=== PATIENT | male | born 1980 | race Caucasian/White ===

== ENCOUNTER 2018-07-30 10:42 | Emergency (ER) | payer MEDICAID, SELFPAY ==
[2018-07-30 10:57] VITALS: BP 142/77; PULSE 91; RESP 16; TEMP 37; O2SAT 98
--- NOTE | 2018-07-30 11:56 | DI.RAD_ITS ---
SYMPTOMS/DIAGNOSIS: ANTERIOR PAIN S/P FALL, PRIOR KNEE SX LEFT KNEE: Four views. No bone or joint abnormality is identified. IMPRESSION: No acute abnormality.
[2018-07-30] MEDS: Acetaminophen 325 MG TAB 650 MG PO (12:04)
--- NOTE | 2018-07-30 13:11 | ED.GENADUL_ITS ---
Discharge Plan Disposition Patient Disposition: HOME Discharge Details Chief Complaint: Orthopedic Clinical Impression: Injury of knee, left Primary Care Provider: Julián Lord ED Provider: Moe Pantoja Home Meds and New Rx's Prescriptions: Continued citalopram 20 MG tablet 1 tab PO DAILY RF: 0 gabapentin 300 MG capsule 300 mg PO BID RF: 0 Discharge Instructions Instructions: Hinged Knee Brace (ED) Additional Instructions: Please take ibuprofen over the counter - dose according to label. Please use hinged knee brace and crutches. Follow-up with orthopedics. Return to the ER for any worsening or new concerning symptoms. Referrals: Lon Miles MD [ [facility] STAFF PHYSICIAN] - Medical Decision Making 38-year-old male with prior meniscal injury and surgery on left knee, here 2 weeks after hyperextension injury left knee with continued pain. Patellar tendon, ACL and PCL intact. No significant effusion on exam. Pain with flexion. Neurovascular intact distally. X-ray of the left knee reviewed and interpreted by radiology: Negative Plan to continue hinged knee brace, crutches, follow-up with orthopedics given prior meniscal injury and surgery. Concern for potential recurrent meniscal tear. HPI General Mode of arrival: ambulatory . Date/Time Provider Initiated Documentation: 07/30/18 10:58 . Limitations to Documentation: no limitations . Information obtained by: patient . HPI Narrative: 38-year-old male with prior meniscal injury and surgery on left knee, here 2 weeks after hyperextension injury left knee with continued pain. Patient slipped and fell on ice. Pain is moderate. Worse with movement. Has been wearing in his knee brace and using Related Data Home Medications Medication Instructions Recorded Confirmed citalopram 1 tab PO DAILY 12/19/14 07/30/18 gabapentin 300 mg PO BID 12/28/15 07/30/18 Allergies Allergy/AdvReac Type Severity Reaction Status Date / Time ibuprofen AdvReac Intermediate STOMACH Unverified 07/30/18 10:59 UPSET naproxen sodium [From Aleve] AdvReac Intermediate VOMITTING, Unverified 07/30/18 10:59 STOMACH BURN, NASEAU General Stated Complaint: Orthopedic MENDEL: 4 Review of Systems Constitutional Denies fever(s) Musculoskeletal Reports as per HPI PFSH Medical History Depression Hypospadias Migraine Surgical History Arthroplasty of knee (06/17/13) hypospadias repair Social History Smoking/Tobacco Use Status: Current every day Exam Const General: cooperative and no acute distress Cardio Rate: regular rate Rhythm: regular rhythm Skin General skin exam: no rashes or lesions noted Neuro General: alert, awake, oriented x3 and tone normal Extrem General: no edema Left lower extremity: hip/thigh Details: no tenderness and no swelling, knee (pain with flexion of knee, patellar tendon intact, acl and pcl intact) Details: tenderness (anterior knee) and knee ligament exam normal; no swelling and lower leg Details: no tenderness and no unusual warmth Course Vital Signs Temperature 37 C 07/30/18 10:57 Pulse 91 H 07/30/18 10:57 Respiratory Rate 16 07/30/18 10:57 Blood Pressure 142/77 H 07/30/18 10:57 Pulse Oximetry 98 07/30/18 10:57 Temperature 37 C 07/30/18 10:57 Temperature Source Skin 07/30/18 10:57 Pulse 91 H 07/30/18 10:57 Respiratory Rate 16 07/30/18 10:57 Respiratory Effort Non-Labored 07/30/18 10:57 Blood Pressure 142/77 H 07/30/18 10:57 Blood Pressure Position Sitting 07/30/18 10:57 Pulse Oximetry 98 07/30/18 10:57 Oxygen Delivery Method Room Air 07/30/18 10:57 Oxygen Flow Rate 0 07/30/18 10:57 Pain Level 6 07/30/18 12:25
== END 2018-07-30 13:23 | disposition home or self-care (01) ==
PROVIDERS: Emergency Provider Student in an Organized Health Care Education/Training Program; PCP Family Medicine
DX: M25.562 Pain in left knee (principal)
CPT/HCPCS: 29505; 99283; 73564; 99282; L1820

== ENCOUNTER 2018-10-05 08:30 | Outpatient (CLI) | payer MEDICAID, SELFPAY ==
--- NOTE | 2018-10-05 08:33 | W.PREOPHP ---
Date of service: 10/05/18 Time of Service: 08:33 Assessment and Plan (1) Internal derangement of left knee: Current visit: Yes Status: Acute A model was used to explain to the patient the anatomy of his knee to point possible pain generators and briefly review the arthroscopic procedure. All questions are answered. He is hoping to find some pathology in his knee to explain his continued symptoms since [place] time History of Present Illness Chief Complaint: left knee pain Narrative: heron is a 38-year-old male who reports 1226 hyperextension injury to his left knee following a slip and fall on ice. He complains of medial and infrapatellar pain and swelling about his knee with constant locking and giving way resulting in a fall and exacerbation of knee pain when he turns on a planted foot. He has been treated with ibuprofen and gone to [facility] and he is noted no change in his symptoms. He has no interest in injective therapy. X-rays done to workup his knee pain have been benign. His history and exam are most suggestive of a internal derangement likely a medial meniscal tear that is not resolving with conservative measures so arthroscopic evaluation of his knee and treatment of any internal derangement found was advised. He has no occupational exposure/this is not a workers comp injury. He previously worked on a horse farm. Pertinent Surgical Information Denies previous medical history of: stroke, TIA, [place], use of sublingual nitroglycerin, GERD, seizures, diabetes, thyroid disease, sleep apnea, liver disease, hepatitis, hematologic disorders Denies previous complications from surgery or anesthesic agents with respect to high fever, prolonged vomiting and difficulty waking up Review of Systems Constitutional Denies fever(s) and Denies headache(s) ENT Denies headache(s), Denies nasal congestion, Denies nasal discharge and Denies sore throat Cardiovascular Denies chest pain, Denies chest pain with activity, Denies palpitations, Denies dyspnea on exertion, Denies orthopnea and Denies paroxysmal nocturnal dyspnea Respiratory Denies cough, Denies excessive phlegm production, Denies pain on inspiration, Denies dyspnea on exertion and Denies wheezing Gastrointestinal Denies abdominal pain, Denies melena, Denies hematochezia, Denies nausea and Denies vomiting Genitourinary Denies hematuria, Denies dysuria and Denies urinary frequency Comments: Denies burning sensation with urination Musculoskeletal Reports as per HPI Neurologic Denies headache(s) Psychiatric Reports anxiety and Reports depression Comments: previously on citalopram and gabapentin for anxiety now takes no rx meds- seeking out a counselor to deal with issues instead of rxs Endocrine Denies palpitations Comments: Denies any unplanned weight changes Allergic/Immunologic Denies wheezing PFSH Social History Smoking/Tobacco Use Status: Current every day Second Hand Exposure: Yes Details: infrequent 1/month Drug use: Occasionally Substance use type: marijuana Counseling given: No Details: [id number] Household members: significant other Meds Allergies Allergy/AdvReac Type Severity Reaction Status Date / Time ibuprofen AdvReac Intermediate STOMACH Unverified 10/05/18 08:44 UPSET naproxen sodium [From Aleve] AdvReac Intermediate VOMITTING, Unverified 10/05/18 08:44 STOMACH BURN, NASEAU Exam Const General: cooperative HENMT Throat: posterior oropharynx normal Eyes General: appearance normal, both eyes and all related structures Conjunctivae: conjunctivae normal Sclera: sclerae normal Neck Neck: no JVD Carotids: normal carotid upstroke and no bruits Resp Effort & Inspection: normal respiratory effort and able to speak in complete sentences Auscultation: clear to auscultation bilaterally, no rales, no rhonchi and no wheezes Cardio Rate: regular rate Heart Sounds: S1 normal, S2 normal and no murmurs Bruits: no abdominal aortic bruits Pulses: normal peripheral pulses Other: No pulsatile mass noted with palpation over the abdominal aorta GI Palpation: soft and no hepatosplenomegaly Auscultation: normal bowel sounds General: No CVA tenderness Extrem General: no pedal edema Other: Normal sensation to light touch No web space cracks or splits noted knee has scant effusion. full extension with flexion intact to 125 degrees.no ligamentous laxity . winces and guards to medial retinacular palpation. single po with jania test.spring test benign.has an exaggerated pain responseto spring and infrapatellar palpation.notes increased pain with patellar compression and quad contraction
--- NOTE | 2018-10-05 08:38 | HPE_ITS ---
Date of service: 10/05/18 Time of Service: 08:33 Assessment and Plan (1) Internal derangement of left knee: Current visit: Yes Status: Acute A model was used to explain to the patient the anatomy of his knee to point possible pain generators and briefly review the arthroscopic procedure. All questions are answered. He is hoping to find some pathology in his knee to explain his continued symptoms since [place] time History of Present Illness Chief Complaint: left knee pain Narrative: heron is a 38-year-old male who reports 1226 hyperextension injury to his left knee following a slip and fall on ice. He complains of medial and infrapatellar pain and swelling about his knee with constant locking and giving way resulting in a fall and exacerbation of knee pain when he turns on a planted foot. He has been treated with ibuprofen and gone to [facility] and he is noted no change in his sym ptoms. He has no interest in injective therapy. X-rays done to workup his knee pain have been benign. His history and exam are most suggestive of a internal derangement likely a medial meniscal tear that is not resolving with conservative measures so arthroscopic evaluation of his knee and treatment of any internal derangement found was advised. He has no occupational exposure/this is not a workers comp injury. He previously worked on a horse farm. Pertinent Surgical Information Denies previous medical history of: stroke, TIA, [place], use of sublingual nitroglycerin, GERD, seizures, diabetes, thyroid disease, sleep apnea, liver disease, hepatitis, hematologic disorders Denies previous complications from surgery or anesthesic agents with respect to high fever, prolonged vomiting and difficulty waking up Review of Systems Constitutional Denies fever(s) and Denies headache(s) ENT Denies headache(s), Denies nasal congestion, Denies nasal discharge and Denies sore throat Cardiovascular Denies chest pain, Denies chest pain with activity, Denies palpitations, Denies dyspnea on exertion, Denies orthopnea and Denies paroxysmal nocturnal dyspnea Respiratory Denies cough, Denies excessive phlegm production, Denies pain on inspiration, Denies dyspnea on exertion and Denies wheezing Gastrointestinal Denies abdominal pain, Denies melena, Denies hematochezia, Denies nausea and Denies vomiting Genitourinary Denies hematuria, Denies dysuria and Denies urinary frequency Comments: Denies burning sensation with urination Musculoskeletal Reports as per HPI Neurologic Denies headache(s) Psychiatric Reports anxiety and Reports depression Comments: previously on citalopram and gabapentin for anxiety now takes no rx meds- seeking out a counselor to deal with issues instead of rxs Endocrine Denies palpitations Comments: Denies any unplanned weight changes Allergic/Immunologic Denies wheezing PFSH Social History Smoking/Tobacco Use Status: Current every day Second Hand Exposure: Yes Details: infrequent 1/month Drug use: Occasionally Substance use type: marijuana Counseling given: No Details: [id number]/day Household members: significant other Meds Allergies Allergy/AdvReac Type Severity Reaction Status Date / Time ibuprofen AdvReac Intermediate STOMACH Unverified 10/05/18 08:44 UPSET naproxen sodium [From Aleve] AdvReac Intermediate VOMITTING, Unverified 10/05/18 08:44 STOMACH BURN, NASEAU Exam Const General: cooperative HENMT Throat: posterior oropharynx normal Eyes General: appearance normal, both eyes and all related structures Conjunctivae: conjunctivae normal Sclera: sclerae normal Neck Neck: no JVD Carotids: normal carotid upstroke and no bruits Resp Effort & Inspection: normal respiratory effort and able to speak in complete sentences Auscultation: clear to auscultation bilaterally, no rales, no rhonchi and no wheezes Cardio Rate: regular rate Heart Sounds: S1 normal, S2 normal and no murmurs Bruits: no abdominal aortic bruits Pulses: normal peripheral pulses Other: No pulsatile mass noted with palpation over the abdominal aorta GI Palpation: soft and no hepatosplenomegaly Auscultation: normal bowel sounds General: No CVA tenderness Extrem General: no pedal edema Other: Normal sensation to light touch No web space cracks or splits noted knee has scant effusion. full extension with flexion intact to 125 degrees.no ligamentous laxity . winces and guards to medial retinacular palpation. single po with jania test.spring test benign.has an exaggerated pain responseto spring and infrapatellar palpation.notes increased pain with patellar compression and quad contraction
== END 2018-10-05 08:50 ==
PROVIDERS: Visit Provider Orthopaedic Surgery
DX: Z01.818 Encounter for other preprocedural examination (principal)

== ENCOUNTER 2018-10-10 12:01 | Day surgery (SDC) | payer MEDICAID, SELFPAY ==
[2018-10-10] VITALS (8 sets, daily range): BP systolic 88–134; BP diastolic 45–84; PULSE 74–93; RESP 12–18; TEMP 36.2–36.8; O2SAT 98–100
[2018-10-10] MEDS: Lactated Ringers 1,000 ML 80 ML IV (12:50)
--- NOTE | 2018-10-10 14:40 | PDOC.DSDIS_ITS ---
Discharge Plan Disposition Patient Disposition: HOME Condition: Good Discharge Details Reason For Visit: INTERNAL DERANGEMENT (L) KNEE Attending Provider: Lon Miles Primary Care Provider: None,None Home Meds and New Rx's Prescriptions: New celecoxib [Celebrex] 50 mg capsule 200 mg PO BID Qty: 60 RF: 0 oxycodone-acetaminophen 5-325 mg tablet 1 tab PO Q4H PRN (Reason: pain ) Qty: 14 RF: 0 Discharge Instructions Additional Instructions: Elevate L leg on 1-2 pillows as much as possible for next 48 hours. Crutches to walk. Put as much weight on L leg as your discomfort allows. Discontinue crutches when you can step on L leg with minimal pain. Apply cryocuff to L knee 4 times/day for 1 hour each time. Remove dressings, shower, and get incisions wet after 48 hours. Leave incisions uncovered when they are dry and sealed. Outpatient physical therapy to rehab L knee post-arthroscopic plica excision onFriday. Follow up with in 2 weeks. Take celebrex as prescribed for inflammation and swelling. Take oxycodone, if needed, for breakthru pain. Referrals: Lon Miles MD [ [facility] STAFF PHYSICIAN] - (f/u in 2 weeks.) Equipment/Supplies: Partial Weight Bearing Crutches Activity:: Activity as Tolerated Remove Dressings/Wound Care:: 48 hours Shower/Bathe:: 48 hours Diet:: As Tolerated Discharge Orders Discharge Orders: Discharge Order (Routine); Ordered 10/10/18 Ordered By: Lon Miles DS: Diagnosis Discharge Diagnosis (1) Internal derangement of left knee: Status: Acute
[2018-10-10] MEDS: fentaNYL 100 MCG/2 ML VIAL IVP ×2 (15:00→15:30)
[2018-10-10] MEDS: Ketorolac 30 MG/ML VIAL (15:08)
[2018-10-10] MEDS: oxyCODONE-CR 10 MG TABCR PO (16:03)
--- NOTE | 2018-10-10 21:18 | ROE_ITS ---
DATE OF PROCEDURE: October 10, 2018 PREOPERATIVE DIAGNOSIS: Internal derangement, left knee. POSTOPERATIVE DIAGNOSIS: Internal derangement, left knee, due to medial patella plica, torn medial m eniscus, and an articular cartilage lesion in the trochlea of the femur. PROCEDURE: #1. Arthroscopic left knee with partial medial meniscectomy. #2. Resection of plica (limited synovectomy). #3. Chondroplasty trochlea of the distal femur. SURGEON: Lon Miles M.D. ANESTHESIA: General. INDICATIONS: This is a 38-year-old white male with an almost one-year history of left knee pain. Th is pain has progressed to the point where he is on crutches all the time. He has recurrent giving wa y as well. Because of failure to improve with conservative treatment, arthroscopy was recommended to obtain an accurate diagnosis that would provide a basis for treatment. He has not responded to cons ervative treatment so far. PROCEDURE: The patient was taken to the Operating Room on 10/10/18. He was placed supine on the oper ating table and a general anesthetic was administered. The left thigh was placed in the arthroscopic leg zuleta and the left knee was prepped and draped free in the usual sterile fashion. Arthroscopic portals were established and the left knee was inflated with normal saline solution using the arthro scopy pump. Routine arthroscopic examination then proceeded. Intraoperative photographs were obtain ed to document findings. Upon entering the medial compartment, he looked to have a normal meniscus. The articular cartilage i n the medial compartment was intact and undamaged. The medial meniscus was probed under direct visio n, and while probing there was noted to be a horizontal cleavage tear of the anterior horn of the med ial meniscus. This tear was easily treated with the high-radiofrequency electrocautery wand to resec t the torn portion of the meniscus. The intercondylar notch showed intact anterior and posterior cruciate ligaments. The lateral compart ment showed a normal lateral meniscus that was stable to probing under direct vision. 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 The medial gutter demonstrated a very thickened plica. I could snap the end of the arthroscope over this plica. I resected the plica using the high-radiofrequency electrocautery wand, correcting any i mpingement on the medial femoral condyle. The suprapatellar pouch was clear. The patellofemoral lani nt showed normal patellar tracking. However, in the middle of the trochlea that is very apex, there was a partial-thickness defect in the articular cartilage. It was probably 75% of the thickness of gabriela moran articular cartilage and the diameter of the lesion was about 6 mm. The roman of the lesion were t hen smoothed and contoured using the high-radiofrequency electrocautery wand so there would not be a fixed stepoff. At this point, the knee was copiously irrigated with saline solution using the arthroscopy pump until the outflow was clear. Twenty cc's of 0.5% Marcaine with epinephrine solution along with 4 mg of mo rphine were instilled into the left knee and all instruments were removed from the knee. The arthros copy portals were infiltrated with 0.5% Marcaine with epinephrine solution and approximated with inte rrupted #4-0 nylon sutures. Sterile dressings were applied, followed by a light compressive dressing to the left knee. The patient tolerated the procedure well. Blood loss was minimal. His anesthesi a was reversed without complications. He was discharged to the Recovery Room in good condition. The patient was later discharged home from the Day Surgery Unit when fully recovered from his general anesthesia. He was given instructions to elevate his left leg on one to two pillows as much as poss ible for the next 48 hours. He is to use crutches to walk, weightbearing as tolerated to the left le g. He may discontinue the crutches when he can step on his left leg without pain. He may remove his dressings, shower and get his incisions wet after 48 hours. He can leave the incisions uncovered wh en they are dry and sealed. He is to begin outpatient Physical Therapy in 48 to 72 hours for range o f motion and strengthening of his left knee. He is given a prescription for inflammation of Celebrex 200 mg p.o. b.i.d. for a week and a prescription for pain of oxycodone with APAP 5 mg/325 mg, 1 tabl et every 4 hours as needed. He is to apply a Cryo/Cuff to the left knee four times a day for an hour each time. He will follow up with Dr. Miles in two weeks.
== END 2018-10-10 16:38 | disposition home or self-care (01) ==
PROVIDERS: Visit Provider Orthopaedic Surgery
PROC: (CPT 29870; principal; 2018-10-10 14:00)
DX: M23.204 Derangement of unspecified medial meniscus due to old tear or injury, left knee (principal); M67.52 Plica syndrome, left knee; M23.92 Unspecified internal derangement of left knee; M17.12 Unilateral primary osteoarthritis, left knee
CPT/HCPCS: 29881; E0114; J0690; J1100; J1885; J2405; J3010

== ENCOUNTER 2019-03-19 07:51 | Emergency (ER) | payer MEDICAID, SELFPAY ==
--- NOTE | 2019-03-19 07:54 | ED.GENADUL_ITS ---
Discharge Plan Disposition Patient Disposition: HOME Condition: Fair Discharge Details Chief Complaint: Nk/Back Pain Clinical Impression: Muscle strain of upper back, Paraspinal muscle spasm Primary Care Provider: None,None ED Provider: Rylee Reese Home Meds and New Rx's Prescriptions: New diazepam [Valium] 5 mg tablet 5 mg PO TID PRN (Reason: muscle spasm) Qty: 10 RF: 0 lidocaine [Lidoderm] 5 % adhesive patch,medicated 1 patch TP DAILY PRN (Reason: pain) Qty: 15 RF: 0 Discharge Instructions Instructions: Muscle Spasm (ED), Lower Back Exercises (ED) Additional Instructions: Encourage hydration. With gentle stretching and frequent ambulation. No heavy lifting. May continue with Tylenol as needed for discomfort. You may continue to apply the patches as prescribed. You may augment the Tylenol with Valium as prescribed to help with muscle spasm. Attached to the referral to physical therapy. Please call and schedule follow-up appointment. If you develop fever/chills, increased pain, radiating pain, weakness, sensation changes or other new/worsening symptoms please seek care urgently once again. Otherwise, please follow-up with primary care in 1 week if not improved. Stand Alone Forms: Physical Therapy Referral Medical Decision Making Patient is a 38-year-old male, accompanied by significant other, with chief complaint of back pain. He reports that 3 days ago he was lifting a 50 pound long tote from a above height shelf when he felt a mild onset of pain. Reports that this later was exacerbated when lifting a large piece of wood was splitting wood. States this further exacerbated following day when lifting plywood. He reports that after each subsequent incident, the pain progressively got worse. Found the pain much worse in the morning. States that he awoke this morning and was having difficulty getting out of bed. States that minimal movements cause severe pain. Does not radiate into the legs. Denies any fevers chills. Denies any fall or trauma. On exam, patient appears nontoxic. He is noted to be tachycardic with a heart rate of 100, this may be associated with his discomfort. He does appear uncomfortable. He has good rotational to the left, pain is exacerbated with rotation to the right. He has no midline tenderness but is severe discomfort with palpation along the paraspinal muscles of the thoracic spine. Neuro exam is intact, no saddle paresthesias. Does have a small abrasion on the left upper side of the fact that she is not sure when he got this. Patient is allergic to ibuprofen. Will give Valium, Tylenol and a Lidoderm patch. The patient's age, that he has not had any trauma, do not feel that he has bony abnormality, do not feel that imaging is appropriate at this time. No bony tenderness with palpation. Patient reports he has some improvement after the above intervention, reports the pain is 10.9 with 7. Is requesting further medication at this time. Augmented with tramadol. Patient reports the pain continues to improve but is still present. We discussed further options and at this time, he prefers discharge. Patient will be given referral to physical therapy. We will continue him on Valium as needed for muscle spasm. He was instructed to not drive while taking this medication. Encourage hydration. I encouraged gentle stretching and frequent ambulation. He was given strict return precautions, particularly with neurologic deficits. Advise follow-up with primary care in 1 week, as patient does not have any illicit, thus her care according to help facilitate prompt follow-up. All his questions and concerns were addressed and he is in agreement this plan. [facility] General Mode of arrival: ambulatory . Date/Time Provider Initiated Documentation: 03/19/19 07:54 . Limitations to Documentation: no limitations . Information obtained by: patient, family and RN notes reviewed . History of Present Illness 38 year old M presents to the emergency department with the chief complaint of thoracic back pain, described as severe, with intensity rated at 9. Quality is described as aching, and is localized to the back. Patient reports no radiation. Patient started experiencing this day(s) (3) and it has been constant. Immobilization improves symptom(s), Movement worsens symptoms . Patient notes no other symptoms.; denies chest pain, cough, diaphoresis, fever/chills, headaches, loss of appetite, nausea/vomiting, rash, shortness of breath and weakness. Patient did receive the following treatments prior to arrival, none Related Data Home Medications Medication Instructions Recorded Confirmed diazepam [Valium] 5 mg PO TID PRN #10 tab 03/19/19 lidocaine [Lidoderm] 1 patch TP DAILY PRN #15 each 03/19/19 Previous Rx's Medication Instructions Recorded diazepam [Valium] 5 mg PO TID PRN #10 tab 03/19/19 lidocaine [Lidoderm] 1 patch TP DAILY PRN #15 each 03/19/19 Allergies Allergy/AdvReac Type Severity Reaction Status Date / Time ibuprofen AdvReac Intermediate STOMACH Unverified 10/24/18 09:35 UPSET naproxen sodium [From Aleve] AdvReac Intermediate VOMITTING, Unverified 10/24/18 09:35 STOMACH BURN, NASEAU General MENDEL: 4 Review of Systems Constitutional Reports as per HPI, Denies chills, Denies fever(s), Denies headache(s) and Denies weakness ENT Denies headache(s) Cardiovascular Reports as per HPI Respiratory Reports as per HPI and Denies cough Musculoskeletal Reports as per HPI and Denies tingling Integumentary/Breasts Reports as per HPI, Denies rash and Denies wounds Neurologic Reports as per HPI, Denies headache(s), Denies tingling, Denies paresthesias and Denies weakness PFSH Medical History Depression (Chronic) Hypospadias (Inactive) Migraine (Chronic) Surgical History History of arthroscopic knee surgery (Inactive) History of extraction of renal calculus (Resolved) Hx of cystoscopy (Inactive) hypospadias repair (Inactive) Social History Smoking/Tobacco Use Status: Current every day Tobacco Type: cigarettes Second Hand Exposure: Yes Alcohol Intake: never Details: infrequent 1/month Drug use: Occasionally Substance use type: marijuana Counseling given: No Details: [id number]/day Household members: significant other Do you feel safe at home: Yes Do you feel safe in your relationship?: Yes Exam Const General: cooperative, healthy appearing, comfortable, no acute distress, well developed and well groomed Nutritional Appearance: average body habitus and well nourished Orientation: alert and awake Resp Effort & Inspection: normal respiratory effort, able to speak in complete sentences and no respiratory distress Cardio Rate: regular rate Rhythm: regular rhythm Back/Spine/Pelvis Back: no CVA tenderness Cervical Spine: normal cervical lordosis, cervical ROM normal, No cervical muscular tenderness, No pain with cervical ROM, No cervical spinal tenderness, No step off deformity and No cervical ROM abnormal Thoracic/Lumbar Spine: thoracic and lumbar spine normal to inspection, No thoraco-lumbar ROM normal (limited rotation to the right), No kyphosis, No mass, paraspinal tenderness (pain T4-T9 with palpation ), thoraco-lumbar ROM limited, thoraco-lumbar spasm (spasm along right side of thoracic spine), No thoracic spinal tenderness (no midline tenderness), No lumbar spinal tenderness and No straight leg raise positive Pelvis: no pain with anterior-posterior compression Skin Trauma: abrasion (1cm well healing abrasion to left side of upper back, no sxs of infection) Neuro General: alert and awake Cognition: normal cognition Speech: speech normal Gait: normal gait Motor: muscle tone normal throughout (no saddle paresthesias), strength 5/5 throughout, no movement abnormalities noted and no fasciculations Sensory Exam: no sensory deficits noted Extrem General: normal to inspection, normal capillary refill and no pedal edema Psych Appearance: grossly normal and well kempt Mental Status: mental status grossly normal Speech and Movement: speech and movement normal
[2019-03-19 07:58] VITALS: BP 134/78; PULSE 100; RESP 18; TEMP 36.5; O2SAT 98
[2019-03-19] MEDS: Acetaminophen 500 MG TAB 1000 MG PO (08:28)
[2019-03-19] MEDS: diazePAM 5 MG TAB PO (08:28)
[2019-03-19] MEDS: Lidocaine 5% Patch 1 PATCH TP (08:30)
[2019-03-19 09:29] VITALS: BP 117/66; PULSE 65; RESP 16; O2SAT 99
[2019-03-19] MEDS: traMADol 50 MG TAB PO (09:33)
== END 2019-03-19 10:20 | disposition home or self-care (01) ==
PROVIDERS: Emergency Provider Physician Assistant
DX: M62.830 Muscle spasm of back (principal); S29.012A Strain of muscle and tendon of back wall of thorax, initial encounter; X50.0XXA Overexertion from strenuous movement or load, initial encounter
CPT/HCPCS: 99283

== ENCOUNTER 2023-01-14 08:44 | Emergency (ER) | payer MEDICAID, SELFPAY ==
[2023-01-14 08:54] VITALS: BP 135/81; PULSE 85; RESP 15; TEMP 37; O2SAT 99
--- NOTE | 2023-01-14 09:00 | DI.RAD_ITS ---
Exam(s) XR HAND RT COMPLETE EXAM: XR HAND RT COMPLETE CLINICAL HISTORY: right hand pain 4th and 5th metacarpal pain. TECHNIQUE: 2D digital imaging was performed. Three views. COMPARISON: No exams were available for comparison FINDINGS: BONES: No acute fracture is present. No bony destructive lesion is seen. JOINTS: No dislocation present. SOFT TISSUE: Tiny bony fragment seen near the 3rd distal interphalangeal joint appears chronic. IMPRESSION: No acute abnormality. DATA REPOSITORY: RADIATION DOSE DELIVERED:
--- NOTE | 2023-01-14 09:32 | ED.GENADUL_ITS ---
Discharge Plan Disposition Patient Disposition: Home Discharge Details Clinical Impression: Hand strain Primary Care Provider: None,None ED Provider: Mary Anne Fields Home Meds and New Rx's Prescriptions: Continued diazepam [Valium] 5 mg tablet 5 mg PO TID PRN (Reason: muscle spasm) Qty: 10 0RF Patient Comments: no longer taking 01/14/23 CT lidocaine [Lidoderm] 5 % adhesive patch,medicated 1 patch TP DAILY PRN (Reason: pain) Qty: 15 0RF Patient Comments: no longer taking 01/14/23 CT Rx Instructions: leave on most painful area for 12 hrs Discharge Instructions Instructions: Muscle Strain (ED) Additional Instructions: Ibuprofen and Tylenol as needed for pain Return earlier should you have new or worsening complaints We will likely take some time for you to have symptomatic improvement Warm compresses and Voltaren gel may help with your pain, Voltaren gel is ove [id number] There is no evidence of fracture on your x-ray Medical Decision Making 42-year-old male with tenderness to right hand, dorsal aspect, after a lifting mechanism X-ray reviewed per radiology interpretation and my review Strength and sensation largely intact, slightly decreased hand grasp secondary to tenderness, neurovascularly intact Ibuprofen and Tylenol recommended Return precautions reviewed and patient expressed understanding HPI General Date/Time Provider Initiated Documentation: 01/14/23 08:58 . HPI Narrative: 42-year-old male presents with right hand injury. States the pain is exacerbated with movement. He states that he grabbed the rear door of this car and felt a popping sensation. This is a week ago. Denies any additional complaints at this time. Related Data Home Medications Medication Instructions Recorded Confirmed diazepam 5 mg tablet (Valium) 5 mg PO TID PRN muscle spasm #10 03/19/19 tabs lidocaine 5 % topical patch 1 patch topical DAILY PRN pain #15 03/19/19 (Lidoderm) ea Previous Rx's Medication Instructions Recorded diazepam 5 mg tablet (Valium) 5 mg PO TID PRN muscle spasm #10 03/19/19 tabs lidocaine 5 % topical patch 1 patch topical DAILY PRN pain #15 03/19/19 (Lidoderm) ea Allergies Allergy/AdvReac Type Severity Reaction Status Date / Time ibuprofen AdvReac Intermediate STOMACH Unverified 01/14/23 08:58 UPSET naproxen sodium [From Aleve] AdvReac Intermediate VOMITTING, Unverified 01/14/23 08:58 STOMACH BURN, NASEAU General Stated Complaint: Orthopedic MENDEL: 4 PFSH All Active Problems (Updated 01/14/23 @ 09:30 by TERESE Brower) Hand strain (Acute) Internal derangement of left knee (Acute) Left ureteral stone (Acute 01/08/16) Depression (Chronic) Migraine (Chronic) Medical History (Updated 01/14/23 @ 09:30 by TERESE Brower) Hypospadias Surgical History History of arthroscopic knee surgery Hx of cystoscopy hypospadias repair Social History Smoking/Tobacco Use Status: Current every day Tobacco Type: cigarettes Second Hand Exposure: Yes Smoking risk assessment performed?: Yes Alcohol Intake: never Details: infrequent 1/month Drug use: Occasionally Substance use type: marijuana Counseling given: No Details: [id number]/day Household members: significant other Do you feel safe at home: Yes Do you feel safe in your relationship?: Yes Exam Narrative Exam Narrative: Right hand with swelling and tenderness to the dorsal aspect, no erythema, slightly decreased hand grasp, no tenderness to right wrist, neurovascularly intact Course Vital Signs Vital signs: Vital Signs Temperature 37.0 C 01/14/23 08:54 Pulse 85 01/14/23 08:54 Respiratory Rate 15 01/14/23 08:54 Blood Pressure 135/81 01/14/23 08:54 Pulse Oximetry 99 01/14/23 08:54 Temperature 37.0 C 01/14/23 08:54 Temperature Source Temporal Artery Scan 01/14/23 08:54 Pulse 85 01/14/23 08:54 Respiratory Rate 15 01/14/23 08:54 Respiratory Effort Normal 01/14/23 08:57 Blood Pressure 135/81 01/14/23 08:54 Blood Pressure Position Sitting 01/14/23 08:54 Pulse Oximetry 99 01/14/23 08:54 Oxygen Delivery Method Room Air 01/14/23 08:54 Oxygen Flow Rate 0 01/14/23 08:54 Pain Level 3 01/14/23 08:57
--- NOTE | 2023-01-14 10:11 | DI.VRAD_ITS ---
PROCEDURE INFORMATION: Exam: XR Right Hand Exam date and time: 01/14/2023 9:25 AM Age: 42 years old Clinical indication: Pain; Hand; Right TECHNIQUE: Imaging protocol: Radiologic exam of the right hand. Views: 3 or more views. PA, oblique and lateral images. COMPARISON: No relevant prior studies available. FINDINGS: Bones/joints: The bones are well mineralized. The oblique image shows a tiny osseous fragment along the anterior radial aspect of the middle finger distal interphalangeal joint. The joint spaces of the hand are intact. No periostitis or osteolysis. No distinct fracture. Soft tissues: Unremarkable. IMPRESSION: Possible avulsion injury to the middle finger distal interphalangeal joint flexor tendon. Dictated and Authenticated by: Sarwat Geogre MD. Ordering:CHARLA North MD
== END 2023-01-14 09:48 | disposition home or self-care (01) ==
PROVIDERS: Emergency Provider Physician Assistant
DX: S63.91XA Sprain of unspecified part of right wrist and hand, initial encounter (principal); X58.XXXA Exposure to other specified factors, initial encounter
CPT/HCPCS: 99283; 73130

== ENCOUNTER 2024-10-04 07:49 | Emergency (ER) | payer MEDICAID, SELFPAY ==
[2024-10-04 07:55] VITALS: BP 116/79; PULSE 98; RESP 18; TEMP 36.7; O2SAT 98
--- NOTE | 2024-10-04 08:05 | ED.GENADUL_ITS ---
Discharge Plan Disposition Patient Disposition: Home Discharge Details Clinical Impression: Difficulty sleeping Primary Care Provider: Unknown,Unknown ED Provider: Ashok Woodruff Home Meds and New Rx's Prescriptions: New hydroxyzine HCl 25 mg tablet 25 mg PO QHS Qty: 14 0RF Discharge Instructions Additional Instructions: You were seen in the emergency department for your difficulty sleeping. Your x- ray was unremarkable of your shoulder and of your hip. As we discussed if you continue having pain please follow-up with your primary care provider as you may or may not benefit from additional imaging. There are 2 additional resources that may be helpful to support you more. 1. The [facility] [employer] can be reached at [phone]. They have caregiver support the monday of every month 2:[address] [facility] in [place]. There is also a chance that [facility] can assist you. They are located just across the parking lot from the emergency department main entrance. Go to building next to [address] [facility]. They are the building with the ramp: [address] [phone] As we discussed, if you do not feel safe at home or if you develop any chest pain nausea or vomiting please return to the emergency department. Discharge Data Discharge Date/Time-TO BE ENTERED AT DEPARTURE: 10/04/24 10:28 HPI General Date/Time Provider Initiated Documentation: 10/04/24 08:05 . HPI Narrative: MDM This is an overall very well-appearing normothermic and not tachycardic 44-year-old male arriving to the emergency department via private vehicle in the setting of difficulty sleeping and eating with reassuring exam for which patient will receive discharge following x-rays and laboratory evaluation. Patient does note that he has been taking 3 or 4 ibuprofen at a time since a fall several weeks ago. He is having hip pain and right shoulder pain. He has been ambulating with a cane. Will ensure that his creatinine is within normal limits. No thoughts of self-harm so we will defer crisis screening. No pain out of proportion to suggest necrotizing soft tissue infection. Equal breath sounds without pneumothorax. Will send prescription for hydroxyzine to attempt to improve sleep. I reached out to [facility] and spoke with Amadou. I have recommended that the patient go to [employer] after his ED visit. Have also connected him with phone number for [facility] as it seems that he is having some caregiver stress and there is a support group that occurs monthly at [facility]. He will have a primary care provider set up by his region of advocate. 10/07 Late charting due to patient care. Patient had reassuring lab work and reassuring plain films. We discussed that he should return to the emergency department if he could not eat or drink or if he developed chest pain nausea vomiting or if he passed out. HPI This is a previously healthy 44-year-old [id number] male right emergency department via private vehicle in the setting of difficulty sleeping and eating. He reports that he is intermittently had some nausea. He reports he feels better when he eats but he has had decreased appetite. He has been taking care of his parents and feels a significant toll. He occasionally stays with them and sleeps on the floor. He has chronic left knee pain but fell several weeks ago on ice and his pain in his right shoulder and right hip. He reports that he would not have come to the emergency department for the pain alone but that his reach out worker advised that he come to the emergency department. He denies chest pain shortness of breath fevers chills nausea or vomiting. Exam General: Well-appearing in no acute distress speaking in complete sentences. Head: Normocephalic, atraumatic. Eye: Extraocular eye movements intact. No conjunctival injection. No scleral icterus. Ear, nose, mouth, throat: Grossly normal inspection. Normal voice, handling secretions normally. Neck: Trachea midline. Cardiovascular: Well-perfused distal extremities. Respiratory: Nonlabored respiration. Gastrointestinal: Nondistended abdomen. Musculoskeletal: Right upper extremity no signs of trauma or muscle wasting. Right hand 2+ radial pulse. Cap refill less than 2 seconds right fingertips. Sensation motor function intact to the right hand across radial, median, ulnar nerve distributions. Patient is able to touch his right hand to his contralateral left shoulder. He has some pain when fully abducting his right arm but is able to do so up to 90 degrees. He can flex at approximately 100 degrees and extend approximately 5 degrees. He is able to fully pronate and supinate and has no tenderness throughout his right wrist elbow and humerus. Right hip no obvious deformities. Pelvis stable. Right foot warm well-perfused 2+ PT DP pulses. 5 out of 5 dorsi and plantar strength. He is able to straight leg raise. He has some pain in his right hip on passive flexion.. Skin: Normal for age and race, grossly normal temperature and turgor. No acute rash. Neurologic: Alert and appropriate, no apparent acute deficits. Psychiatric: Mood and manner are appropriate. Grooming and personal hygiene are appropriate. Related Data Home Medications ?Medication ?Instructions ?Recorded ?Confirmed hydroxyzine HCl 25 mg tablet 25 mg PO QHS #14 tabs 10/04/24 Previous Rx's ?Medication ?Instructions ?Recorded hydroxyzine HCl 25 mg tablet 25 mg PO QHS #14 tabs 10/04/24 Allergies Allergy/AdvReac Type Severity Reaction Status Date / Time ibuprofen AdvReac Intermediate STOMACH Unverified 10/04/24 08:00 UPSET naproxen sodium (From Aleve) AdvReac Intermediate VOMITTING, Unverified 10/04/24 08:00 STOMACH BURN, NASEAU General Stated Complaint: Anxiety MENDEL: 4 Course Vital Signs Vital signs: Vital Signs Temperature 36.7 C 10/04/24 07:55 Pulse 98 H 10/04/24 07:55 Respiratory Rate 18 10/04/24 07:55 Blood Pressure 116/79 10/04/24 07:55 Pulse Oximetry 98 10/04/24 07:55 Temperature 36.7 C 10/04/24 07:55 Temperature Source Oral 10/04/24 07:55 Pulse 98 H 10/04/24 07:55 Respiratory Rate 18 10/04/24 07:55 Blood Pressure 116/79 10/04/24 07:55 Pulse Oximetry 98 10/04/24 07:55 Oxygen Delivery Method Room Air 10/04/24 07:55 Oxygen Flow Rate 0 10/04/24 07:55 Medical Decision Making Quality:SDOH Health Related Social Needs: No Data to Display PFSH All Active Problems (Updated 10/04/24 @ 08:47 by Ashok Woodruff MD) Difficulty sleeping (Acute) Internal derangement of left knee (Acute) Left ureteral stone (Acute 01/08/16) Depression (Chronic) Migraine (Chronic) Medical History (Updated 10/04/24 @ 08:47 by Ashok Woodruff MD) Hypospadias Surgical History Hx of cystoscopy History of arthroscopic knee surgery hypospadias repair Social History Smoking/Tobacco Use Status: Current every day Tobacco Type: cigarettes Second Hand Exposure: Yes Smoking risk assessment performed?: Yes Alcohol Intake: never Details: infrequent 1/month Drug use: Occasionally Substance use type: marijuana Counseling given: No Details: esfcglidc5cdpt/day Household members: significant other Do you feel safe at home: Yes Do you feel safe in your relationship?: Yes
--- NOTE | 2024-10-04 08:30 | DI.RAD_ITS ---
Exam(s) XR HIP RT COMPLETE AP PELVIS EXAM: XR HIP RT COMPLETE AP PELVIS CLINICAL HISTORY: Hip pain fall. TECHNIQUE: 2D digital imaging was performed of the right hip. Two images were obtained. AP pelvis a nd lateral right hip views were obtained. COMPARISON: CR ABD FLAT UPRIGHT PA CHEST from 11/18/2010 FINDINGS: BONES: No acute fracture is present. No bony destructive lesion is seen. JOINTS: No dislocation present. SOFT TISSUE: Normal. IMPRESSION: No acute fracture or dislocation. Unremarkable radiographs of the pelvis. DATA REPOSITORY: RADIATION DOSE DELIVERED:
--- NOTE | 2024-10-04 08:30 | DI.RAD_ITS ---
Exam(s) XR SHOULDER RT COMPLETE 2+V EXAM: XR SHOULDER RT COMPLETE 2+V CLINICAL HISTORY: Shoulder pain. TECHNIQUE: 2D digital imaging was performed of the right shoulder. Five images were obtained. AP, Grashey, Y-view and axillary views were obtained. COMPARISON: CR RIGHT RIBS TO INCLUDE CXR from 04/26/2014 FINDINGS: BONES: No acute fracture is present. No bony destructive lesion is seen. JOINTS: No dislocation present. SOFT TISSUE: Normal. IMPRESSION: No acute fracture or dislocation. DATA REPOSITORY: RADIATION DOSE DELIVERED:
[2024-10-04 09:32] LABS: Abs Immature Grans 0.02 10^3/uL (0.0-0.06); Absolute Basophil Count 0.02 10^3/uL (0.0-0.2); Absolute Eosinophil Count 0.03 10^3/uL (0.0-0.7); Absolute Lymphocyte Count 1.94 10^3/uL (1.2-3.4); Absolute Monocyte Count 0.48 10^3/uL (0.1-0.8); Absolute Neutrophil Count 4.21 10^3/uL (1.2-6.7); Basophils % 0.3 %; Eosinophils % 0.4 %; HCT 45.2 % (40.0-50.0); HGB 15.3 g/dL (13.5-17.5); Immature Grans % 0.3 %; MCH 30.8 pg (27.0-33.0); MCHC 33.8 % (32.0-36.0); MCV 91 fL (80-95); MPV 10.6 fL (8.0-11.0); Monocytes % 7.2 %; Neutrophils % 62.8 %; Platelet Count 274 10^3/uL (130-400); RBC 4.97 10^6/uL (4.36-5.78); RDW 12.7 % (11.8-14.1)
[2024-10-04 09:39] LABS: BUN 14 mg/dL (7-18); CREATININE 1.2 mg/dL (0.70-1.30); Calcium 9.7 mg/dL (8.5-10.1); Chloride 107 mmol/L (98-107); Estimated GFR 77.43 (mL/min/1.73m2); Glucose 128 mg/dL (74-106); Potassium 3.8 mmol/L (3.5-5.1); Sodium 145 mmol/L (136-145)
[2024-10-04 09:45] VITALS: RESP 12
[2024-10-04 10:28] VITALS: BP 128/102; PULSE 97; RESP 12; O2SAT 98
== END 2024-10-04 10:28 | disposition home or self-care (01) ==
LOC: ER 10:36
PROVIDERS: Emergency Provider Emergency Medicine
DX: G47.00 Insomnia, unspecified (principal); M25.511 Pain in right shoulder; M25.551 Pain in right hip; F17.210 Nicotine dependence, cigarettes, uncomplicated
CPT/HCPCS: 80048; 99284; 73030; 73502; 85025